=== PATIENT | female | born 1955 | race Caucasian/White ===

== ENCOUNTER 2018-12-30 05:53 | Inpatient (IN) | payer OTHER, SELFPAY ==
[2018-12-13 12:47] VITALS: BMI 45.2
[2018-12-30] VITALS (18 sets, daily range): BP systolic 97–163; BP diastolic 52–90; PULSE 45–86; RESP 9–18; TEMP 36.1–37.7; O2SAT 96–100; BMI 45.2
--- NOTE | 2018-12-30 06:31 | DI.RAD.S_ITS ---
PROCEDURE: XR KNEE RT 1TO2V INDICATIONS: post op TKA TECHNIQUE: 2 view(s) of the knee acquired. COMPARISON: Radiographs of the knee 06/08/2018, 05/27/2016. FINDINGS: Bones: Patient is status post knee joint arthroplasty. Hardware components are in expected positions. Visualized bony structures are intact. Soft tissues: Overlying postoperative changes are noted. Suprapatellar surgical drain in place. Anterior staple line. IMPRESSION: Satisfactory appearance of the right total hemiarthroplasty. Dictated by: Salvador Dumont M.D. on 12/30/2018 at 12:05 Approved by: Salvador Dumont M.D. on 12/30/2018 at 12:07
[2018-12-30] MEDS: PREGABALIN 75 MG CAPSULE PO (07:05)
[2018-12-30] MEDS: VANCOMYCIN 1,000 MG/200 ML PIGGYBACK 200 MG IV ×2 (07:11→16:39)
[2018-12-30] MEDS: CELECOXIB 200 MG CAPSULE PO (07:25)
--- NOTE | 2018-12-30 07:46 | PM.PREOP ---
Pre-operative Note Interval Note History & Physical reviewed/Exam performed by Physician: Yes Changes to H&P: No
--- NOTE | 2018-12-30 07:46 | PM.OP.1 ---
Operative Date/Time/Diagnoses Date of procedure: 12/30/18 Time of procedure: 07:54 Pre-op diagnosis: right knee OA Post-op diagnosis: same Procedure & Clinicians Procedure: Right total knee arthroplasty Same procedure as scheduled: Yes Indications: The patient has had progressively worsening right knee pain with radiographic changes consistent with arthritis. Non-operative management has failed and the patient has requested total knee replacement. The risks, benefits and alternatives to surgery were discussed with the patient prior to proceeding. Risks discussed included, but were not limited to, failure to relieve pain, stiffness, infection, nerve damage, deep venous thrombosis, pulmonary embolism, stroke, coma, heart attack, permanent paralysis and , as well as the potential need for eventual revision of the prosthetic. Surgeon: Cristal Rutledge Director Of Leadership Development: Kaley Martinez Operative Notes Findings: Severe right knee osteoarthritis, adequate stability, Closure Type: primary Prosthetic devices, grafts, tissues, transplants, or devices: Rutledge and Nephew Journey BCS 2 size 8 femur, size 6 tibia, +9 poly, 32 mm patella Applied: drain(s) Estimated Blood Loss (mL): 250 Blood products transfused: none Procedure in detail: The patient was seen in the pre-operative area, where the patient identified the right knee as the operative site and this was marked with my initials. The patient received pre-operative antibiotics, and was taken to the operating room and placed on the operative table in the supine position. After satisfactory anesthesia, a careers counsellor out was performed. The right leg was encircled with a tourniquet about the proximal thigh, and the leg was prepared from the toes to the tourniquet with ChloroPrep in the usual fashion and draped through sterile drapes. The leg was elevated and exsanguinated with Eschmark bandage and the tourniquet inflated to [300] mmHg pressure. The knee was approached through an approximately 18 cm incision centered over the patella and carried into the knee through a medial parapatellar arthrotomy. A portion of the medial and lateral meniscus was resected. Soft tissue was carefully mobilized around the patella the patella was measured with a caliper. Bone was resected from the patella and the patellar height was reconstituted with up an appropriate sized patellar component. A cover was then placed on the patella. A small amount of additional medial and lateral meniscus was resected. The visionare guide fit well to the distal femur. It looked like an appropriate distal femoral cut and the cut was made without difficulty. The rotation was assessed and the appropriate size femoral guide was placed on the distal femur and finishing cuts were made. There was no evidence of notching. The anterior, posterior and chamfer cuts were then made. The posterior osteophytes and soft tissues were then removed. The posterior capsule was injected with part of a mixture of 60 ml 0.25% Marcaine mixed with 20 ml Exparel for post operative pain control. The remainder of this mixture was injected into the capsule and subcutaneous tissues during cement curing. The tibia was prepared and the visionaire guide fit well to the distal tibia. The rotation was assessed. The patient was placed in extension residual medial and lateral meniscus as well as any residual bone was carefully resected. [No] additional tibia was resected. Hemostasis was achieved especially posteriorly. Additional local was injected into the posterior capsule. The extension gap was assessed and additional releases for gap balancing were performed as necessary. It was checked with the gap gum rolling machine tender. The femoral component was trial was placed and the notch was finished. Trial tibial and femoral components were then placed and the knee placed through a range of motion. Range of motion was [0-125], with good stability throughout the range. The trials were then removed, and the tibia was finished. The bone was prepared with pulsatile lavage, and dried with a sponge. Cement was applied and the final prosthetics placed. Excess cement was removed during and after cement curing. A brief Betadine soak was performed. After confirming there was no extruded cement posteriorly, the final tibial insert was placed. The knee was copiously irrigated and the tourniquet deflated. Hemostasis was obtained with the [Bovie]. A drain was placed and brought out superolaterally. The capsule was closed with interrupted Vicryl suture. The subcutaneous layer was closed with barbed sutures, and the skin with a running 3-0 V-Lock suture and skin nils. A Becky dressing was applied and the patient was taken to recovery having tolerated the procedure well. Complications: none Post-operative Condition: stable Disposition: Acute Care Plan for aftercare: The patient will be maintained on a standard total knee replacement protocol with weight bearing as tolerated. The patient will receive aspirin and sequential compression devices for DVT prophylaxis. The patient will be discharged home when safe for the home environment.
[2018-12-30] MEDS: fentaNYL 100 MCG/2 ML INJ 50 MCG IV ×2 (07:47→11:38)
[2018-12-30] MEDS: MIDAZOLAM 2 MG/2 ML VIAL IV (07:47)
[2018-12-30] MEDS: LACTATED RINGERS 1,000 ML 42 ML IV ×2 (08:01→09:41)
--- NOTE | 2018-12-30 08:02 | SUR.PREOP ---
Block start time [0747] . Monitoring initiated and maintained throughout procedure. Oxygen and medications given per anesthesiologist instructions. Patient remained stable throughout procedure, no adverse reactions noted. Block end time [0855].
[2018-12-30] MEDS: CLINDAMYCIN 900 MG/50 ML PIGGYBACK 50 MG IV (08:30)
--- NOTE | 2018-12-30 08:47 | SUR.OPER ---
Supine on padded OR bed. Pillow under head, arms secured on padded armboards <90 degree abduction. Safety belt across torso. Non-operative leg secured with tape over blanket over lower leg. Operative leg secured in DeMayo/Saqib positioner. Foam padded brace at thigh of operative leg.
[2018-12-30] MEDS: BUPIVACAINE LIPOSOME 266 MG/20 ML VIAL INJ (08:56)
[2018-12-30] MEDS: BUPIVACAINE 0.25% W/ EPI 30 ML VIAL 60 ML INJ (08:56)
[2018-12-30] MEDS: TRANEXAMIC ACID 1,000 MG VIAL 1000 MG INJ ×2 (10:51→10:52)
[2018-12-30] MEDS: ONDANSETRON 4 MG/2 ML INJ IV (11:44)
[2018-12-30] MEDS: ACETAMINOPHEN 325 MG TABLET 975 MG PO ×2 (12:12→20:31)
--- NOTE | 2018-12-30 12:44 | SUR.PHASEI ---
gave zofran for emesis x 3. As long as patient is upright patient states she feels ok. Gave pain medication for knee/back pain.
[2018-12-30] MEDS: LACTATED RINGERS 1,000 ML 125 ML IV ×2 (13:19→22:27)
[2018-12-30] MEDS: OXYCODONE IR 5 MG TABLET PO ×2 (13:37→16:37)
--- NOTE | 2018-12-30 14:11 | PC.NURSE ---
Addendum entered by Yvette Kohli R.N. 12/30/18 15:17: message left for TAHIR Roche at 1505 regarding pt's pain management. Fax will be sent to surgery also. Addendum entered by Yvette Kohli R.N. 12/30/18 14:59: Upon reassessment, pain to right knee 5-6/10, pt states Oxycodone made her feel slightly dizzy, did not help with pain. PRN Tramadol given at 1459 per MAR. Original Note: Day Shift- Report taken by RN Coordinator. Another RN to assume care of pt, however this RN assumed care at 1320. Pt had arrived on unit at 1300. Pt feeling intermittent nausea, does not want PRN at this time. Rates 4-5/10 aching to top and back of right knee. PRN Oxycodone given at 1337 with saltine crackers. Pt also has gingerale per her request. PIC dressing CDI to right knee and Hemovac in place clamped. Clamped released at 1350, per PACU report was clamped at 1100. CMS+, bilateral puffy edema to dorsal foot below toes, pt states this is her normal. RLE edema greater than LLE edema, pt states this is her normal as well. Family at bedside. Pt instructed to DB&C and perform ankle pump exercises.
[2018-12-30] MEDS: TRAMADOL 50 MG TABLET PO (14:58)
--- NOTE | 2018-12-30 15:15 | PT.IPTN ---
Current Diagnoses Unilateral primary osteoarthritis, right knee (12/30/18) Surgery Performed Operation Date: 12/30/18 07:45 Actual Procedures p Total Knee Arthroplasty(Right) - Cristal Rutledge MD Physical Therapy Treatment Note M3 PT-IP Subjective Start: 12/30/18 15:11 Freq: NEEDED Status: Active Protocol: Document 12/30/18 14:05 AB (Rec: 12/30/18 15:15 AB [id number]) Subjective Physical Therapy Visit Type Notes checked on pt and pt c/o nausea. BP: 114/72. pt does not want to do PT at this time due to nausea.
[2018-12-30] MEDS: KETOROLAC 15 MG/ML VIAL IV (17:49)
[2018-12-30] MEDS: ASPIRIN EC 81 MG TABLET PO (20:32)
[2018-12-30] MEDS: OXYCODONE IR 5 MG TABLET 10 MG PO (20:32)
[2018-12-30] MEDS: DOCUSATE 100 MG CAPSULE PO (20:32)
[2018-12-31] MEDS: OXYCODONE IR 5 MG TABLET 10 MG PO ×3 (01:59→13:17)
[2018-12-31] MEDS: ONDANSETRON 4 MG/2 ML INJ IV (02:06)
--- NOTE | 2018-12-31 02:26 | PC.NURSE ---
Addendum entered by Lindsey Villarreal R.N. 12/31/18 05:22: Slept last several hours. States pain is 3/10 this morning and agreeable to taking just 5mg Oxycodone at this time. Denies nausea. Had 175cc out from hemovac. Original Note: Patient is alert and oriented. Breath sounds CTA with RA sat of 98%. HRR. Initially denied nausea but after being up to bathroom complained of nausea so was medicated with IV Zofran. BT present and abdomen is soft; reports passing flatus. Denies dysuria, frequency or urgency; voiding on BSC and is continent. Able to move self in bed. Requires walker and 2 assists to get up to BSC but denies feeling weak. States pain in right knee is 4/10; requested/medicated with 10mg Oxycodone as states the earlier 5mg dose was not enough to control the pain. MADHAVI dressing is CDI and knee is wrapped with janneth. Hemovac is intact and compressed. CMS intact bilaterally. Does have non pitting chronic bilateral LE edema. Wearing calf SCD's. Fall risk score is high and bed alarm is activated.
[2018-12-31] MEDS: OXYCODONE IR 5 MG TABLET PO ×2 (05:18→17:18)
[2018-12-31 05:20] VITALS: BP 133/73; PULSE 85; RESP 16; TEMP 36.3; O2SAT 100
[2018-12-31 05:26] LABS: Hemoglobin 11.3 g/dL (12.0-16.0)
[2018-12-31] MEDS: LACTATED RINGERS 1,000 ML 125 ML IV (06:18)
[2018-12-31 08:04] VITALS: BP 111/70
[2018-12-31] MEDS: DOCUSATE 100 MG CAPSULE PO (08:04)
[2018-12-31] MEDS: LISINOPRIL 20 MG TABLET PO (08:04)
[2018-12-31] MEDS: ACETAMINOPHEN 325 MG TABLET 975 MG PO ×2 (08:04→15:51)
[2018-12-31] MEDS: ASPIRIN EC 81 MG TABLET PO (08:05)
[2018-12-31] MEDS: PANTOPRAZOLE 40 MG TABLET PO (08:05)
[2018-12-31] MEDS: CHLORTHALIDONE 25 MG TABLET PO (08:06)
[2018-12-31] MEDS: ALLOPURINOL 300 MG TABLET PO (08:06)
[2018-12-31 08:15] VITALS: BP 111/70; PULSE 64; RESP 17; TEMP 37.4; O2SAT 98
--- NOTE | 2018-12-31 09:29 | PM.PNPO.1 ---
Subjective Subjective Date Patient Seen: 12/31/18 Time Patient Seen: 09:29 Interval history: Postop day 1 status post right total knee arthroplasty with Dr. Rutledge. Patient's pain has been well controlled with oxycodone, and Tylenol. She notes she does get muscle spasms from time to time. ASA for DVT prophylaxis. Last drain output was 175. She just got up with physical therapy. Exam Vital Signs (past 8 hours): - 12/31/18 05:20 12/31/18 08:04 12/31/18 08:15 Temperature 97.3 F L 99.4 F Pulse Rate 85 64 Respiratory Rate 16 17 Blood Pressure 133/73 111/70 111/70 Pulse Oximetry 100 98 Fraction of Inspired Oxygen 21 Oxygen Delivery Method Room Air Oxygen Flow Rate 0 Narrative Exam Narrative: Patient is sitting at bedside chair in no acute distress. She is alert orient x3. Calves are soft, compressible, nontender bilaterally. Sensation intact to light touch over bilateral lower extremities. Pulses are symmetrical. Hemovac drain in place. Objective Labs Result Diagrams: 12/31/18 05:08 Labs: Laboratory Results - last 24 hr 12/31/18 05:08 Hgb 11.3 L Hct 33.0 L Assessment & Plan Post-op Postoperative Procedures: Procedures Operation Date: 12/30/18 07:45 Actual Procedures Side Surgeon p Total Knee Arthroplasty Right Cristal Urmila Rutledge MD Patient will continue to mobilize with physical therapy. She did note some dizziness and was instructed to take her time when transitioning from lying to sitting, sitting to standing, and standing to mobilizing. She is encouraged to drink fluids today. Remove Hemovac drain prior to discharge. She could discharge home today of mobilizing safely, and pain adequately controlled.
--- NOTE | 2018-12-31 09:43 | PC.NURSE ---
Addendum entered by Ynes Dunn R.N. 12/31/18 12:11: Pt. sitting up in chair after working with Rehab. Reports pain 06/30. Repositioned; ice in place. Reports little appetite but tolerates food and denies nausea. Discharge orders written; awaiting caregiver training with PT. Original Note: DAY SHIFT Report received, care assumed. A&Ox3. VSS. C/o right knee pain 09/29; ice applied and meds given. Denies nausea at this time. Pt. requests up to BSC to void. Had difficulty transferring to edge of bed, but once out of bed mobilized appropriately with walker to BSC. Worked with PT, will do caregiver training for discharge this afternoon.
--- NOTE | 2018-12-31 10:43 | CM.IDA ---
Initial DCP Assessment Note: Pt is a 63 yo female, resident of [place], now POD#1 from Rt knee surgery w/ Dr Rutledge PCP: Marc Garza Payer: [employer] Reviewed chart, pt discussed in multidisciplinary rounds this morning. pt has planned for return home w/family to assist, PT pending for clearance, DC order from Ortho PA has already been initiated this morning. No needs expected from DC planning team although will remain available in case this changes today. [place]
--- NOTE | 2018-12-31 10:54 | PT.IIE ---
Current Diagnoses Unilateral primary osteoarthritis, right knee (12/30/18) Surgery Performed Operation Date: 12/30/18 07:45 Actual Procedures p Total Knee Arthroplasty(Right) - Cristal Rutledge MD Surgical History (Last Updated 12/13/18 @ 12:57 by Marisela Benjamin, RN) History of section (Acute) History of laparotomy (Acute) History of left nephrectomy (Acute ~2003) History of surgical removal of pilonidal cyst (Acute) Hx of appendectomy (Acute) Hx of cholecystectomy (Acute ~2003) Medical History (Last Updated 12/13/18 @ 13:21 by Marisela Benjamin, RN) Arthritis (Acute) Asthma (Acute) Edema (Acute) GERD (gastroesophageal reflux disease) (Acute) HTN (hypertension) (Acute) Hyperuricemia (Acute) Migraines (Acute) Morbid obesity (Acute) Osteoarthritis (Acute) Physical Therapy Inpatient Evaluation/Re-Eval M1 PT/OT-IP Prior Functional Status Start: 12/30/18 15:11 Freq: NEEDED Status: Active Protocol: Document 12/31/18 08:30 (Rec: 12/31/18 10:53 [id number]) Medical Review Prior Functional Status Medical History Reviewed Yes Communication able to make needs known Mobility and Gait pt stated that she is independent with all mobilities and ambulation without AD but has been using her SPC for ~ 2 weeks prior to sx due to pain Social History Household Members none Living Arrangements House Number of Floors (Floors) One Floor Number of Stairs To Enter/Railing? 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 pt's daughter (former [employer]IN[employer] PICKLER) stated that she will be staying and assisting the pt for 2 weeks or when needed upon d/c M2 PT-IP Current Condition Start: 12/30/18 15:11 Freq: NEEDED Status: Active Protocol: Document 12/31/18 08:30 [facility] (Rec: 12/31/18 [facility]:[address] [email or web address] Physical Therapy Current Condition Current Condition Evaluation Date 12/31/18 Treatment Diagnosis R TKA, difficulty in walking Onset Date 12/30/18 Weight Bearing Status Weight Bearing Status Weight Bear as Tolerated M3 PT-IP Subjective Start: 12/30/18 15:11 Freq: NEEDED Status: Active Protocol: Document 12/31/18 08:30 HH (Rec: 12/31/18 10:53 [id number]) Subjective Physical Therapy Visit Type Type Initial Evaluation Visit Start Time 08:30 Visit Stop Time 09:15 Total Visit Minutes 45 Number of LEGAL ANALYST Visits 0 Physical Therapy Visit Comments Patient Comments Gina been feeling nauseated and lightheaded easily since surgery, but im now feeling better. Patient Goals To return home with dtr's assistance Therapy Pain Assessment Pain When Pain Assessed During Mobility Pain Present Pain Present Pain Reported Location Right Knee Intensity 5 Scale Used Numeric (1 - 10) Description Acute Pain Management Techniques Apply Cold,Modification of Treatment,Timing of Activity with Medications M4 PT-IP Mobility and Gait Start: 12/30/18 15:11 Freq: NEEDED Status: Active Protocol: Document 12/31/18 08:30 HH (Rec: 12/31/18 10:53 [id number]) PT-Bed Mobility Assessment Supine to Sit Supine to Sit Minimal Assistance,1 Person Assistance,Head of Bed Elevated,Bedrails Scooting Scooting to Edge of Bed Minimal Assistance Scooting Up and Down in Bed Minimal Assistance PT-Transfer Assessment Sit to and From Stand Sit to and from Stand Minimal Assistance,Moderate Assistance,1 Person Assistance ,Use of Upper Extremities Equipment Transfer Assistive Device Front Wheeled Walker Orthotic/Prosthetic Devices or Brace: No Transfers Transfer Destination Bed,Chair Transfer Technique Stand Step Pivot Transfer Ability Level of Assist Minimal Assistance,1 Person Assistance,Use of Upper Extremities Comments Mobility Comments BP = 120s/70s in supine; 100s/ 60s after mobility. Pt was in bed upon assessment. She completed supine to sit and pivot her R LE towards R EOB with CGA/ min A from elevated head of bed 70 degrees. She uses R bed rail to pull and scooting towards EOB. Pt overall took increased time for bed mobiltiy due to her large body size. She stood up with min A and FWW but needed PT's assistance to stabilize walker. Pt then started ambulation from EOB to hallway with step to gait. She returned to bedside chair after but demonstrated poor eccentric control with min A. Call light and table placed within reach. Gait Assessment Gait Gait Assistance Required: Contact Guard Assist Distance (Feet) 30 Able to Maintain Weight Bearing Status Yes During Gait Assistive Devices Assistive Device Gait Belt,Front Wheeled Walker Orthotic/Prosthetic Devices or Brace: No Gait Deviations General Gait Pattern Antalgic,Decreased Stride Length,Decreased Feet Clearance,Flexed Trunk,Lateral Trunk Lean,Step-to Gait Factors Limiting Gait Function Factors Limiting Gait Function Decreased Activity Tolerance, Decreased Strength,Limited Range of Motion,Pain,Poor Balance,Poor Safety Awareness Comments Gait Comments see mobility comments Stair Climbing Assessment Comments Stair Climbing Comments unable to assess due to pain PT-Balance Assessment Sitting Balance and Reactions Static Sitting Balance Ability Normal Dynamic Sitting Balance Ability Normal Standing Balance and Reactions Static Standing Balance Ability Normal Dynamic Standing Balance Ability Good Device Used FWW M5 PT-IP Objective Assessments Start: 12/30/18 15:11 Freq: NEEDED Status: Active Protocol: Document 12/31/18 08:30 (Rec: 12/31/18 10:53 [email or web address]) Orientation Orientation/Cognition Level of Alertness Alert Orientation Name,Age,Birthday,Month,Date, Year,Day of Week,Place, Situation Language Function Ability No Deficits Noted Safety Awareness Understands Safety Issues Memory Description No Deficits Noted Gross Range of Motion Upper Extremity ROM Assessment Within Functional Limits Lower Extremity ROM Assessment Right Impaired Impairments L knee AROM = ~5 to 80 degrees Strength Upper Extremity Strength Assessment Within Functional Limits Lower Extremity Strength Assessment Right Impaired Knee 3+/5 M6 PT-IP Treatment Start: 12/30/18 15:11 Freq: NEEDED Status: Active Protocol: Document 12/31/18 08:30 HH (Rec: 12/31/18 10:53 [id number]) Physical Therapy Treatment Exercises Exercises Ankle Pumps,Gluteal Sets,Quad Sets,Heel Slides Education Education Provided Precautions,Weight Bearing Status,Post-Op Packet,Safety M7 PT-IP Assessment and Plan Start: 12/30/18 15:11 Freq: NEEDED Status: Active Protocol: Document 12/31/18 08:30 HH (Rec: 12/31/18 10:53 [id number]) PT Summary Assessment and Plan Potential Rehabilitation Potential Excellent Status of Condition at Evaluation Stable Summary Impairments Pain,ROM,Strength,Balance,Bed Mobility,Transfers,Gait, Activity Tolerance Assessment Summary Pt is a low complexity who is s/p R TKA from yesterday. Upon assessment, pt needed CGA to min A for overall mobility. She used bed rail extensively for bed mobility and seemed to have difficulty getting up from a low surface chair. Pt's BP was also dropped to 106/62 post mobility who c/o increased dizziness but able to stabilized after resting in her bedside chair. Will conduct CG training with her dtr (former [employer] P[employer]) this afternoon and pt has to climb 3 RIANA with R rail, along with stabilized BP prior to d/c home with dtr's assistance. Goals Bed Mobility Goal Contact Guard Assistance, Moderate Assistance Transfer Goal Contact Guard Assistance Gait Goal Contact Guard Assistance Gait Distance 50 Other Goals 3 RIANA with R rail Days to Meet Goals 3 Frequency of Treatment Frequency Of Treatment Twice a Day Treatment Plan Physical Therapy Treatment Plan Bed Mobility Training,Transfer Training,Gait Training, Therapeutic Exercise,Balance Retraining,Post Op Education, Discharge Planning,Hot or Cold Pack,Neuromuscular Re-ed Other Recommendations and Next Treatment bed mob from flattened Focus position without bed rail transfer and gait traininga s yue stair climbing if possible. Recommendations To Nursing Amount of Assist Needed 1 Person Assist Discharge Recommendations PT Discharge Recommendations Home with Assistance, Outpatient PT
[2018-12-31 12:42] VITALS: BP 109/60; PULSE 72; RESP 15; TEMP 36.9; O2SAT 99
--- NOTE | 2018-12-31 13:35 | PT.IPTN ---
Current Diagnoses Unilateral primary osteoarthritis, right knee (12/30/18) Surgery Performed Operation Date: 12/30/18 07:45 Actual Procedures p Total Knee Arthroplasty(Right) - Cristal Rutledge MD Physical Therapy Treatment Note M2 PT-IP Current Condition Start: 12/30/18 15:11 Freq: NEEDED Status: Active Protocol: Document 12/31/18 08:30 HH (Rec: 12/31/18 10:53 HH [id number]) Physical Therapy Current Condition Current Condition Evaluation Date 12/31/18 Treatment Diagnosis R TKA, difficulty in walking Onset Date 12/30/18 Weight Bearing Status Weight Bearing Status Weight Bear as Tolerated M3 PT-IP Subjective Start: 12/30/18 15:11 Freq: NEEDED Status: Active Protocol: Document 12/31/18 13:35 AB (Rec: 12/31/18 15:53 AB [id number]) Subjective Physical Therapy Visit Type Type Treatment Note Visit Start Time 13:35 Visit Stop Time 14:29 Total Visit Minutes 54 Number of DIRECTOR MEDICAL Visits 0 Physical Therapy Visit Comments Patient Comments pt agreeable to do PT Therapy Pain Assessment Pain When Pain Assessed At Rest Pain Present Pain Present Pain Reported Location Right Knee Intensity 5 Scale Used Numeric (1 - 10) M4 PT-IP Mobility and Gait Start: 12/30/18 15:11 Freq: NEEDED Status: Active Protocol: Document 12/31/18 13:35 AB (Rec: 12/31/18 15:53 AB [id number]) PT-Bed Mobility Assessment Supine to Sit Supine to Sit Standby Assistance Sit to Supine Sit to Supine Minimal Assistance PT-Transfer Assessment Sit to and From Stand Sit to and from Stand Contact Guard Assistance, Minimal Assistance,1 Person Assistance,Use of Upper Extremities Equipment Transfer Assistive Device Gait Belt,Front Wheeled Walker Orthotic/Prosthetic Devices or Brace: No Comments Mobility Comments caregiver training conducted. daughter was able to assist pt with bed mobility, transfers and ambulation. Gait Assessment Gait Gait Assistance Required: Standby Assistance,Contact Guard Assist Distance (Feet) 75 Able to Maintain Weight Bearing Status Yes During Gait Assistive Devices Assistive Device Gait Belt,Front Wheeled Walker Orthotic/Prosthetic Devices or Brace: No Gait Deviations General Gait Pattern Antalgic,Decreased Stride Length,Decreased Feet Clearance Factors Limiting Gait Function Factors Limiting Gait Function Decreased Activity Tolerance, Decreased Strength,Limited Range of Motion,Pain,Poor Balance Stair Climbing Assessment Evaluation Level of Assist On Stairs Minimal Assistance,1 Person Assistance Devices Stair Climbing Assistive Devices Straight Cane,Right Railing Technique/Endurance Stair Climbing Direction Ascend and Descend Stair Climbing Technique Step to Step Number of Steps Climbed 3 Stair Climbing Set # Repetitions (reps) 1 M5 PT-IP Objective Assessments Start: 12/30/18 15:11 Freq: NEEDED Status: Active Protocol: Document 12/31/18 08:30 HH (Rec: 12/31/18 10:53 HH [id number]) Orientation Orientation/Cognition Level of Alertness Alert Orientation Name,Age,Birthday,Month,Date, Year,Day of Week,Place, Situation Language Function Ability No Deficits Noted Safety Awareness Understands Safety Issues Memory Description No Deficits Noted Gross Range of Motion Upper Extremity ROM Assessment Within Functional Limits Lower Extremity ROM Assessment Right Impaired Impairments L knee AROM = ~5 to 80 degrees Strength Upper Extremity Strength Assessment Within Functional Limits Lower Extremity Strength Assessment Right Impaired Knee 3+/5 M6 PT-IP Treatment Start: 12/30/18 15:11 Freq: NEEDED Status: Active Protocol: Document 12/31/18 13:35 AB (Rec: 12/31/18 15:53 AB [id number]) Physical Therapy Treatment Exercises Exercises Heel Slides Education Education Provided Safety M7 PT-IP Assessment and Plan Start: 12/30/18 15:11 Freq: NEEDED Status: Active Protocol: Document 12/31/18 13:35 AB (Rec: 12/31/18 15:53 AB [id number]) PT Summary Assessment and Plan Potential Rehabilitation Potential Good Summary Impairments Pain,ROM,Strength,Balance,Bed Mobility,Transfers,Gait, Activity Tolerance Progress Towards Goals Progressing Toward Goals Assessment Summary caregiver trianing conducted and pt's daughter was able to assist pt safely. pt plans to go home and her family to assist her. pt is set up for outpt PT. Goals Bed Mobility Goal Contact Guard Assistance Transfer Goal Contact Guard Assistance Gait Goal Contact Guard Assistance Gait Distance 50 Other Goals 3 RIANA with R rail CGA Days to Meet Goals 3 Frequency of Treatment Frequency Of Treatment Twice a Day Treatment Plan Physical Therapy Treatment Plan Bed Mobility Training,Transfer Training,Gait Training, Therapeutic Exercise,Balance Retraining,Post Op Education, Discharge Planning,Hot or Cold Pack,Neuromuscular Re-ed Recommendations To Nursing Amount of Assist Needed 1 Person Assist Discharge Recommendations PT Discharge Recommendations Home with Assistance, Outpatient PT
[2018-12-31 15:35] VITALS: BP 112/71; PULSE 80; RESP 16; TEMP 37.3; O2SAT 100
--- NOTE | 2018-12-31 18:49 | PC.NURSE ---
Addendum entered by Regla Tidwell R.N. 12/31/18 18:54: H/V gauze and tegaderm changed prior to leaving as it has moderate drainage. Gauze & tegaderm provided to pt's dtr with drsg instructions if site continues to have drainage. Original Note: Assumed care of pt at 1500. Pt sitting up in chair during hand-off. D/C paperwork completed by day shift RN. Teaching provided by this commercial underwriter. Drain removed per Verbal by TAHIR Rojas. Pressure drsg applied. IV removed. Dr. Rutledge in for rounding prior to d/c and wrote script for Tramadol. Pt verbalized understanding of all d/c instructions. Pt escorted off unit by MANNEQUIN MOUNTER with all personal belongings. Pt left in stable condition.
== END 2018-12-31 17:50 | disposition home or self-care (01) | DRG 470 ==
PROVIDERS: Admitting Provider Orthopaedic Surgery; PCP Family Medicine; Visit Provider Orthopaedic Surgery
PROC: 0SRC0JZ Replacement of Right Knee Joint with Synthetic Substitute, Open Approach (ICD-10-PCS; CPT 27447; principal; 2018-12-30 07:45)
DX: M17.11 Unilateral primary osteoarthritis, right knee (principal); Z68.42 Body mass index [BMI] 45.0-49.9, adult; E66.9 Obesity, unspecified; I10 Essential (primary) hypertension; M10.9 Gout, unspecified; R42 Dizziness and giddiness
CPT/HCPCS: 36415; 64447; 73560; 85014; 85018; 94762; 97116; 97161; 97530; C1776; C9290; J1885; J2250; J2405; J2704; J3010

== ENCOUNTER → 2021-12-03 11:16 | Outpatient (CLI) | payer OTHER, SELFPAY ==
[2018-12-30 13:34] VITALS: BMI 45.2
[2021-12-03 12:11] LABS: COVID19 -Nasal RAPID Negative (Negative)
== END ==
PROVIDERS: PCP Family Medicine; Referring Provider Orthopaedic Surgery; Visit Provider Orthopaedic Surgery
DX: Z20.822 Contact with and (suspected) exposure to COVID-19 (principal)
CPT/HCPCS: 87635; C9803

== ENCOUNTER 2021-12-05 06:07 | Day surgery (SDC) | payer OTHER, SELFPAY ==
[2018-12-30 13:34] VITALS: BMI 45.2
[2021-11-28 13:52] VITALS: BMI 45.8
[2021-12-05] VITALS (21 sets, daily range): BP systolic 91–159; BP diastolic 43–81; PULSE 49–600; RESP 8–18; TEMP 36–36.7; O2SAT 69–100; BMI 45.8
--- NOTE | 2021-12-05 06:34 | DI.RAD.S_ITS ---
PROCEDURE: XR KNEE LT 1TO2V INDICATIONS: LEFT TOTAL KNEE TECHNIQUE: 2 view(s) of the knee acquired. COMPARISON: [facility], CR, XR KNEE RT 1TO2V, 12/30/2018, 11:42. FINDINGS: Bones: Patient is status post knee joint arthroplasty. Hardware components are in expected positions. Visualized bony structures are intact. Soft tissues: Overlying postoperative changes are noted. IMPRESSION: Expected immediate postoperative appearance, status post total left knee arthroplasty. Dictated by: Santiago Elise M.D. on 12/05/2021 at 12:43 Approved by: Santiago Elise M.D. on 12/05/2021 at 12:44
[2021-12-05] MEDS: VANCOMYCIN 1,000 MG/200 ML PIGGYBACK 200 MG IV ×2 (06:46→19:05)
[2021-12-05] MEDS: PREGABALIN 75 MG CAPSULE PO (06:47)
[2021-12-05] MEDS: ACETAMINOPHEN 325 MG TABLET 975 MG PO (06:49)
[2021-12-05] MEDS: LACTATED RINGERS 1,000 ML 42 ML IV ×3 (07:00→12:11)
--- NOTE | 2021-12-05 07:38 | PM.PREOP ---
Pre-operative Note COVID-19 COVID-19 status: Negative Interval Note History & Physical reviewed/Exam performed by Physician: Yes Changes to H&P: No
--- NOTE | 2021-12-05 07:39 | PM.OP.1 ---
Operative Date/Time/Diagnoses Date of procedure: 12/05/21 Time of procedure: 07:45 Pre-op diagnosis: left knee OA Post-op diagnosis: same Procedure & Clinicians Procedure: Left total knee arthroplasty Same procedure as scheduled: Yes Indications: The patient has had progressively worsening left knee pain with radiographic changes consistent with arthritis. Non-operative management has failed and the patient has requested total knee replacement. The risks, benefits and alternatives to surgery were discussed with the patient prior to proceeding. Risks discussed included, but were not limited to, failure to relieve pain, stiffness, infection, nerve damage, deep venous thrombosis, pulmonary embolism, stroke, coma, heart attack, permanent paralysis and , as well as the potential need for eventual revision of the prosthetic. Surgeon: Cristal Rutledge Executive Office Manager: Sudha Toro Anesthesia Type: General Operative Notes Findings: Severe left knee osteoarthritis, acceptable stability Closure Type: primary Specimen(s): none sent Prosthetic devices, grafts, tissues, transplants, or devices: Rutledge [employer]hew [employer] BCS 2 size 7 femur, size 6 tibia, 32 by 7.5 mm patella, +9 poly Applied: drain(s) Estimated Blood Loss (mL): 250 Blood products transfused: none Tourniquet time (min): 79 Procedure in detail: The patient was seen in the pre-operative area, where the patient identified the left knee as the operative site and this was marked with my initials. The patient received pre-operative antibiotics, and was taken to the operating room and placed on the operative table in the supine position. After satisfactory anesthesia, a signal timer out was performed. The left leg was encircled with a tourniquet about the proximal thigh, and the leg was prepared from the toes to the tourniquet with ChloroPrep in the usual fashion and draped through sterile drapes. The leg was elevated and exsanguinated with Eschmark bandage and the tourniquet inflated to [250] mmHg pressure. The knee was approached through an approximately 18 cm incision centered over the patella and carried into the knee through a medial parapatellar arthrotomy. A portion of the medial and lateral meniscus was resected. Soft tissue was carefully mobilized around the patella the patella was measured with a caliper. Bone was resected from the patella and the patellar height was reconstituted with up an appropriate sized patellar component. A cover was then placed on the patella. A small amount of additional medial and lateral meniscus was resected. The distal femur was cut at 5?. A [+2] cut was used. It looked like an appropriate distal femoral cut and the cut was made without difficulty. An extramedullary guide was used for the tibial cut. 10 mm was resected off the least affected side.The tibia was prepared. The rotation was assessed. The patient was placed in extension residual medial and lateral meniscus as well as any residual bone was carefully resected. [No] additional tibia was resected. Hemostasis was achieved especially posteriorly. Additional local was injected into the posterior capsule. The extension gap was assessed and additional releases for gap balancing were performed as necessary. It was checked with the gap business applications analyst. The femoral component was trial was placed and the notch was finished. The rotation was assessed and the appropriate size femoral guide was placed on the distal femur and finishing cuts were made. There was no evidence of notching. The anterior, posterior and chamfer cuts were then made. The posterior osteophytes and soft tissues were then removed. The posterior capsule was injected with part of a mixture of 60 ml 0.25% Marcaine mixed with 20 ml Exparel for post operative pain control. The remainder of this mixture was injected into the capsule and subcutaneous tissues during cement curing. The tibial and femoral components were then placed and the knee placed through a range of motion. Range of motion was [0-130], with good stability throughout the range. The trials were then removed, and the tibia was finished. The bone was prepared with pulsatile lavage, and dried with a sponge. Cement was applied and the final prosthetics placed. Excess cement was removed during and after cement curing. A brief Betadine soak was performed. After confirming there was no extruded cement posteriorly, the final tibial insert was placed. The knee was copiously irrigated and the tourniquet deflated. Hemostasis was obtained with the [bovie]. A drain was placed and brought out superolaterally. The capsule was closed with interrupted nonabsorbable suture. The subcutaneous layer was closed with barbed sutures, and the skin with a running 3-0 V-Lock suture and Surgical glue. An Aquacel Ag dressing was applied and the patient was taken to recovery having tolerated the procedure well. Complications: none Post-operative Condition: stable Disposition: observation Plan for aftercare: The patient will be maintained on a standard total knee replacement protocol with weight bearing as tolerated. The patient will receive aspirin and sequential compression devices for DVT prophylaxis. The patient will be discharged home when safe for the home environment.
[2021-12-05] MEDS: TRANEXAMIC ACID 1,000 MG VIAL 1000 MG INJ ×2 (08:35→10:07)
--- NOTE | 2021-12-05 08:56 | SUR.OPER ---
Supine on padded OR bed. Pillow under head, arms secured on padded armboards <90 degree abduction. Safety belt across torso. Non-operative leg secured with tape over blanket over lower leg. Operative leg secured in DeMayo/Saqib/Nathe positioner. Foam padded brace at thigh of operative leg.
[2021-12-05] MEDS: BUPIVACAINE 0.25% (PF) 60 ML, EPINEPHrine 0.3 MG INJ (09:05)
[2021-12-05] MEDS: BUPIVACAINE LIPOSOME 266 MG/20 ML VIAL INJ (09:05)
[2021-12-05] MEDS: HYDROMORPHONE 2 MG INJ 0.5 MG IV ×2 (11:13→11:23)
[2021-12-05] MEDS: ONDANSETRON 4 MG/2 ML INJ IV ×2 (11:39→12:01)
[2021-12-05] MEDS: METOCLOPRAMIDE 10 MG/2 ML INJ IV (12:28)
--- NOTE | 2021-12-05 12:29 | SUR.PHASEI ---
Dr. Espinal notified HR ranging from 40s-70. Patient continued to report nausea. VVO Reglan 10mg IV x1.
[2021-12-05] MEDS: OXYCODONE IR 5 MG TABLET PO (12:42)
--- NOTE | 2021-12-05 12:44 | SUR.PHASEI ---
Report called to KAYLA Cuevas
--- NOTE | 2021-12-05 13:02 | SUR.PHASEI ---
Patient transferred to the floor with her belongings bag. Report given to Mason. VS stable. Knee dressing CDI. HV patent. MADHAVI in place. IV saline locked.
[2021-12-05] MEDS: LACTATED RINGERS 1,000 ML 100 ML IV (13:31)
--- NOTE | 2021-12-05 14:10 | PT.IIE ---
Current Diagnoses Unilateral primary osteoarthritis, left knee (12/05/21) Surgery Performed Operation Date: 12/05/21 07:45 Actual Procedures p Total Knee Arthroplasty(Left) - Cristal Rutledge MD Surgical History (Last Updated 11/28/21 @ 14:00 by Marisela Benjamin, RN) History of arthroplasty of right knee (12/30/18) History of section History of laparotomy History of left nephrectomy (~2003) History of surgical removal of pilonidal cyst Hx of appendectomy Hx of cholecystectomy (~2003) Medical History (Last Updated 12/13/18 @ 13:21 by Marisela Benjamin, KAYLA) Arthritis Asthma Edema GERD (gastroesophageal reflux disease) HTN (hypertension) Hyperuricemia Migraines Morbid obesity Osteoarthritis Physical Therapy Inpatient Evaluation/Re-Eval M1 PT/OT-IP Prior Functional Status Start: 12/05/21 14:55 Freq: NEEDED Status: Active Protocol: Document 12/05/21 14:10 AB (Rec: 12/05/21 15:09 [id number]) Medical Review Prior Functional Status Medical History Reviewed Yes Communication able to make needs known Mobility and Gait per daughter: pt is modified independent with all mobilities and ambulation without AD but uses either a quad cane or 2 trekking poles for long distance outdoor mobility Social History Household Members family Living Arrangements House Number of Floors (Floors) One Floor Number of Stairs To Enter/Railing? 3 steps R rail to enter Home Environment Tub/Shower Home Equipment Front Wheel Walker,Quad Cane, Straight Cane,Bedside Commode, Raised Toilet Seat Without Armrests,Tub Transfer Bench, Hand Held Shower,Grab Bars Near Toilet,Grab Bars In Shower Additional Social History Comment pt lives with her grandson; daughter will stay with pt for ~ 1 weeks to assist pt and afterwards, grandson will mainly assist and daughter who lives closeby will also come in to assist M2 PT-IP Current Condition Start: 12/05/21 14:55 Freq: NEEDED Status: Active Protocol: Document 12/05/21 14:10 AB (Rec: 12/05/21 15:09 AB [id number]) Physical Therapy Current Condition Current Condition Evaluation Date 12/05/21 Treatment Diagnosis s/p L TKA; difficulty in walking Onset Date 12/05/21 M3 PT-IP Subjective Start: 12/05/21 14:55 Freq: NEEDED Status: Active Protocol: Document 12/05/21 14:10 AB (Rec: 12/05/21 15:09 [id number]) Subjective Physical Therapy Visit Type Type Initial Evaluation Visit Start Time 14:10 Visit Stop Time 14:50 Total Visit Minutes 40 Number of SEROLOGY TECHNICIAN Visits 0 Physical Therapy Visit Comments Patient Comments agreeable to do PT Therapy Pain Assessment Pain When Pain Assessed At Rest Pain Present Pain Present Pain Reported Location Left Knee Intensity 6 Scale Used Numeric (0 - 10) Pain Management Techniques Apply Cold,Distraction, Elevation,Modification of Treatment,Re-positioning, Timing of Activity with Medications M4 PT-IP Mobility and Gait Start: 12/05/21 14:55 Freq: NEEDED Status: Active Protocol: Document 12/05/21 14:10 AB (Rec: 12/05/21 15:09 [id number]) PT-Bed Mobility Assessment Supine to Sit Supine to Sit Minimal Assistance,Head of Bed Elevated,Bedrails Sit to Supine Sit to Supine Maximum Assistance,2 Person Assistance,Bedrails PT-Transfer Assessment Sit to and From Stand Sit to and from Stand Moderate Assistance,Maximum Assistance,1 Person Assistance ,Use of Upper Extremities Equipment Transfer Assistive Device Gait Belt,Front Wheeled Walker Orthotic/Prosthetic Devices or Brace: No Comments Mobility Comments BP in supine: 122/76. completed supine to sit min A and cues. able to sit on EOB SBA. c/o dizziness. BP in sittin/69. pt completed sit to stand mod to max A and max cues and was able to take one step forward using FWW mod to max A and c/o lightheadedness. instructed to step back to EOB and sidestepping to HOB using FWW mod to max A and cues ~ 2 ft. BP checked: 100/59. c/o nausea. completed sit to supine max A x 2 and max cues. positioned pt in bed. call light and table placed within reach. caregiver training set up tomorrow at 9 am. Gait Assessment Gait Gait Assistance Required: Moderate Assistance,Maximum Assistance Distance (Feet) 2 Able to Maintain Weight Bearing Status Yes During Gait Assistive Devices Assistive Device Gait Belt,Front Wheeled Walker Orthotic/Prosthetic Devices or Brace: No Gait Deviations General Gait Pattern Antalgic,Decreased Stride Length,Decreased Feet Clearance,Step-to Gait Factors Limiting Gait Function Factors Limiting Gait Function Decreased Activity Tolerance, Decreased Strength,Difficulty Following Directions,Limited Range of Motion,Pain,Poor Balance,Poor Safety Awareness PT-Balance Assessment Sitting Balance and Reactions Static Sitting Balance Ability Good Dynamic Sitting Balance Ability Good Standing Balance and Reactions Static Standing Balance Ability Fair Dynamic Standing Balance Ability Poor Device Used FWW M5 PT-IP Objective Assessments Start: 12/05/21 14:55 Freq: NEEDED Status: Active Protocol: Document 12/05/21 14:10 AB (Rec: 12/05/21 15:09 AB [id number]) Orientation Orientation/Cognition Level of Alertness Alert Orientation Name,Place,Situation Safety Awareness Decreased Safety Awareness Gross Range of Motion Lower Extremity ROM Assessment Left Impaired Impairments L knee flexion: ~ 60 deg Strength Lower Extremity Strength Assessment Left Impaired Hip 4-/5 Knee 3+/5 Muscle Tone Muscle Tone WNL Yes M6 PT-IP Treatment Start: 12/05/21 14:55 Freq: NEEDED Status: Active Protocol: Document 12/05/21 14:10 AB (Rec: 12/05/21 15:09 AB [id number]) Physical Therapy Treatment Education Education Provided Precautions,Weight Bearing Status,Post-Op Packet,Safety M7 PT-IP Assessment and Plan Start: 12/05/21 14:55 Freq: NEEDED Status: Active Protocol: Document 12/05/21 14:10 AB (Rec: 12/05/21 15:09 AB [id number]) PT Summary Assessment and Plan Potential Rehabilitation Potential Fair Status of Condition at Evaluation Evolving Summary Impairments Pain,ROM,Strength,Balance, Coordination,Sensation,Tone, Cognition,Bed Mobility, Transfers,Gait,Activity Tolerance Assessment Summary pt s/p L TKA and just had surgery this morning. pt with c/o increase pain and nausea during mobiltiy affecting function. pt will likely progress during hospital stay. caregiver training set up for tomorrow at 9 am. will continue to assess progress. Goals Bed Mobility Goal Independent Transfer Goal Independent,Front Wheeled Walker Gait Goal Independent,Front Wheel Walker Gait Distance 150 Other Goals up/down 3 steps R rail SBA Days to Meet Goals 5 Frequency of Treatment Frequency Of Treatment Twice a Day Treatment Plan Physical Therapy Treatment Plan Bed Mobility Training,Transfer Training,Gait Training, Therapeutic Exercise,Balance Retraining,Post Op Education, Discharge Planning,Hot or Cold Pack,Neuromuscular Re-ed, Coordination Retraining,Manual Therapy Weight Bearing Status Weight Bearing Status Weight Bear as Tolerated Allowed Weight Bearing Amount (enter % LLE WBAT or #) (%) Recommendations To Nursing Amount of Assist Needed 1 Person Assist Discharge Recommendations PT Discharge Recommendations Home with Assistance, Outpatient PT Transportation Needs at Discharge Private Vehicle
[2021-12-05] MEDS: OXYCODONE IR 10 MG TABLET PO ×2 (15:32→20:13)
--- NOTE | 2021-12-05 18:23 | PC.NURSE ---
Pt A/O, Denies discomfort at this time. MADHAVI dsg CDI Hemavac intact/patent. IVF infusing as per orders w/o incidence. Call light w/in reach, bed alarm on for pt safety. Continue w/plan of care.
[2021-12-05] MEDS: DOCUSATE 100 MG CAPSULE PO (20:11)
[2021-12-05] MEDS: ASPIRIN EC 81 MG TABLET PO (20:11)
[2021-12-05] MEDS: MAGNESIUM OXIDE 400 MG TABLET 1000 MG PO (20:12)
[2021-12-05] MEDS: IBUPROFEN 400 MG TABLET PO (20:13)
[2021-12-05] MEDS: ACETAMINOPHEN 325 MG TABLET 650 MG PO (23:47)
[2021-12-06 00:14] VITALS: BP 141/71; PULSE 66; RESP 17; TEMP 36.6; O2SAT 98
[2021-12-06] MEDS: OXYCODONE IR 10 MG TABLET PO ×3 (00:48→12:17)
[2021-12-06] MEDS: SODIUM CHLORIDE 0.9% FLUSH 10 ML IV ×2 (01:20→08:19)
--- NOTE | 2021-12-06 03:12 | PC.NURSE ---
Pt. requested to turn off her SCD's. States I can't go to sleep when the machine if pumping & squeezing my legs. Patient was sleeping since SCD's was turned off. Will cont. POC & monitor.
[2021-12-06 04:14] LABS: Hemoglobin 10.8 g/dL (12.0-16.0)
[2021-12-06 04:51] VITALS: BP 137/70; PULSE 88; RESP 16; TEMP 36.3; O2SAT 94
[2021-12-06] MEDS: ACETAMINOPHEN 325 MG TABLET 650 MG PO ×2 (06:07→12:17)
[2021-12-06] MEDS: PANTOPRAZOLE DR 40 MG TABLET PO (06:08)
--- NOTE | 2021-12-06 08:05 | P.DS_ITS ---
History of Present Illness History of Present Illness Date Patient Seen: 12/06/21 Time Patient Seen: 08:05 Chief complaint: Left knee pain s/p left TKA Narrative: Patient is complaining of [id number] left knee pain this morning. She worked with physical therapy yesterday. Overall she is feeling well and would like to be discharged home today. Her postop nausea is resolving. The main concern is that her Hemovac has put out over 310 cc in last 24 hours. Discharge Providers Provider Discharge Date: 12/06/21 Primary care physician: Marc Garza MD Consults: 12/05/21 06:34 Consult to Anesthesiology Routine Comment: Consulting Provider: Anesthesiologist Reason for consultation: Regional block for post operative pain control 12/05/21 13:00 Consult to Discharge Planning Routine Comment: Consult to Physical Therapy Evaluate & Treat Comment: Physician Instructions: postop TKA protocol Consult to Respiratory Therapy Evaluate & Treat Comment: Physician Instructions: Evaluate and treat Discharge provider: Sduha Toro PA-C Summary Hospital Course Discharge Diagnosis: Left knee OA Hospital Course: Operative Date/Time/Diagnoses Date of procedure: 12/05/21 Time of procedure: 07:45 Procedure & Clinicians Procedure: Left total knee arthroplasty Same procedure as scheduled: Yes Indications: The patient has had progressively worsening left knee pain with radiographic changes consistent with arthritis. Non-operative management has failed and the patient has requested total knee replacement. The risks, benefits and alternatives to surgery were discussed with the patient prior to proceeding. Risks discussed included, but were not limited to, failure to relieve pain, stiffness, infection, nerve damage, deep venous thrombosis, pulmonary embolism, stroke, coma, heart attack, permanent paralysis and , as well as the potential need for eventual revision of the prosthetic. Surgeon: Cristal Rutledge Television Journalist: Sudha Toro Anesthesia Type: General Operative Notes Findings: Severe left knee osteoarthritis, acceptable stability Closure Type: primary Specimen(s): none sent Prosthetic devices, grafts, tissues, transplants, or devices: [employer] BCS 2 size 7 femur, size 6 tibia, 32 by 7.5 mm patella, +9 poly Applied: drain(s) Estimated Blood Loss (mL): 250 Blood products transfused: none Tourniquet time (min): 79 Status at Discharge Cognitive/behavioral status at discharge: at baseline, oriented Functional status at discharge: uses cane/walker Overall status at discharge: patient is progressing back to baseline Exam Vital Signs (past 8 hours): - 12/06/21 00:14 12/06/21 04:51 Temperature 97.8 F 97.4 F L Pulse Rate 66 88 Respiratory Rate 17 16 Blood Pressure 141/71 H 137/70 Pulse Oximetry 98 94 Oxygen Flow Rate 0 0 Oxygen Delivery Method Room Air Oxygen Flow Rate 0 Narrative Exam Narrative: Pleasant 66-year-old female, resting comfortably in bed, no acute distress. Becky dressing shows a few pinpoint areas of scant bloody drainage, otherwise clean dry intact. There is no surrounding erythema or induration. Her Hemovac has put out over 310 cc in last 24 hours. It was taken off suction this morning and placed to gravity only. Bilateral lower extremity: Motor functions are grossly intact, sensation is grossly intact to light touch, calves are soft and nontender to palpation. Objective Labs Result Diagrams: 12/06/21 03:40 Labs: Laboratory Results - last 24 hr 12/06/21 03:40 Hgb 10.8 L Hct 32.0 L PFSH Medical History Arthritis Asthma Edema GERD (gastroesophageal reflux disease) HTN (hypertension) Hyperuricemia Migraines Morbid obesity Osteoarthritis Surgical History History of arthroplasty of right knee (12/30/18) History of section History of laparotomy History of left nephrectomy (~2003) History of surgical removal of pilonidal cyst Hx of appendectomy Hx of cholecystectomy (~2003) Social History household members: family Smoking Status: Never smoker alcohol intake: current Discharge Assessment & Plan Assessment and Plan Assessment: Stable status post left total knee arthroplasty Plan of Treatment: -mobilize with PT. Weightbearing as tolerated with front wheel walker -continue with multimodal pain management. The patient has prescriptions at home already. -aspirin 81 mg twice daily x6 weeks -Hemovac taken off suction today. [place] only until after her physical therapy session. If the output is less than 50 cc at this time, okay to discontinue Hemovac. -DC home today once cleared by PT and Hemovac parameters are met. Discharge Plan Discharge Plan Patient Disposition: Home Discharge orders & Medications Discharge Orders: Discharge (Order); Ordered 12/06/21 Ordered By: Sudha Toro Prescriptions: Continued celecoxib [Celebrex] 200 mg Capsule 100 mg PO BID lisinopril 20 mg Tablet 20 mg PO DAILY chlorthalidone 25 mg Tablet 25 mg PO DAILY tramadol 50 mg Tablet 50 mg PO BID PRN (Reason: Pain) acetaminophen [Acetaminophen Pain Relief] 500 mg Tablet 1,300 mg PO TID potassium 99 mg Tablet 297 mg PO BID lansoprazole [Prevacid] 30 mg Capsule,Delayed Release(Dr/Ec) 30 mg PO DAILY allopurinol 300 mg Tablet 300 mg PO DAILY magnesium 250 mg Tablet 1,000 mg PO BID aspirin 81 mg Tablet,Delayed Release (Dr/Ec) 81 mg PO BID Qty: 60 0RF docusate sodium [DOK] 100 mg Capsule 100 mg PO BID Qty: 60 0RF hydroxyzine HCl 25 mg tablet 25 mg PO BID PRN (Reason: muscle spasms) Qty: 20 0RF Rx Instructions: 1 tab po every 12 hours as needed for muscle spasms Follow up/Referrals: Marc Garza MD [Primary Care Provider] - Cristal Rutledge MD [Physician] - (10-14 days for postoperative visit) Diet/Activity/Treatments Diet: Diet as Tolerated Other treatments: Medications: -Aspirin 81mg twice daily x6 weeks to prevent blood clots. -OTC Tylenol 500 mg 1 tablet every 4 hours as needed for pain/fever. Max 6 tablets per day. -Ibuprofen 400 mg 1 tablet every 4 hours as needed for pain/inflammation. Max 2,400 mg per day. -Oxycodone 5 mg take 1-2 tablets every 4 hours as needed for moderate-severe pain (narcotic pain medication). -Vistaril (hydroxyine) 25mg 1 tab every 4 hours as needed for spasms/pain/nausea. -As needed medications: -Ducolax and /or MiraLax as needed for constipation from narcotic pain medications. -Pepcid AC as needed for stomach upset (usually from aspirin or ibuprofen). Dressing/Wound care: -Remove the Guillermo wrap 48 hours after surgery. -Keep Becky dressing in place until postoperative follow-up office visit. The Becky battery/pump should last for 7 days from surgery. Once the pump stops, please cut off hose at base of dressing and cover with a bandaid/part of a dressing from Becky package. The monitor can be thrown away and recycle the batteries. Leave the remaining dressing in place. -Becky info: The Becky dressing provides suction known as negative pressure wound therapy, which draws out excess fluid from the wound and protects the incision. It also helps to prevent bacteria from entering the wound or incision. -Okay to shower. Keep wound out of direct water stream. No soaking or submerging until all the scabs fall off (approximately 4-6 weeks). -No lotions, ointments, or scar creams directly to the incision until the wound is healed (4-6 weeks), -Please call the office if dressing becomes wet, soiled, or saturated. Activities: -Weight-bearing as tolerated. Use front wheeled walker, and progress to cane when safe. -Continue with home exercises as directed by your physical therapist. -Elevate ?toes above the nose if you have significant swelling in your lower leg. (A wedge pillow is easiest.) -Ice your incision as needed for pain/inflammation/swelling. Protect your skin with a folded pillowcase. -Incentive Spirometer (breathing device from hospital): 5-10xs every hour while awake for the first 1-2 weeks. Follow-up: -Follow-up with your surgeon or PA in the office in 10-14 days after surgery. -Follow-up with your surgeon 6 weeks postoperatively. Call the office if you have chest pain, shortness of breath, significant swelling that will not resolve with elevating, fever over 101?, significantly worsening pain, or are concerned you might need to go to the Emergency Room. [facility]: [phone] Skin/Wound/Dressing Care Report to your healthcare provider any signs of infection, such as:: chills, fever, night sweats, unusual drainage and unusual redness Visit Report/Discharge Packet Instructions: DI for Knee Replacement Stand Alone Forms: Surgery Discharge Discharge Data Primary Care Provider: Marc Garza Attending Provider: Cristal Rutledge VTE Deep Vein Thrombosis/Pulmonary Embolism Present on Admission: No
[2021-12-06] MEDS: MAGNESIUM OXIDE 400 MG TABLET 1000 MG PO (08:10)
[2021-12-06 08:12] VITALS: BP 128/60; PULSE 66; RESP 18; TEMP 36.3; O2SAT 97
[2021-12-06 08:13] VITALS: BP 128/60; PULSE 66
[2021-12-06] MEDS: DOCUSATE 100 MG CAPSULE PO (08:13)
[2021-12-06] MEDS: ASPIRIN EC 81 MG TABLET PO (08:13)
[2021-12-06] MEDS: lisinopriL 20 MG TABLET PO (08:13)
[2021-12-06] MEDS: CHLORTHALIDONE 25 MG TABLET PO (08:13)
[2021-12-06] MEDS: allopurinoL 300 MG TABLET PO (08:18)
--- NOTE | 2021-12-06 08:46 | CM.DANOTE ---
DCP: Case received, EMR reviewed and met with patient. Introduced self and role. Was able to obtain information regarding patient's baseline activity level prior to her surgery. DCP assessment completed with information currently available. Patient is a 66 year old female who admitted yesterday morning to the care of the orthopedic team. PCP: Dr. Garza. Payer: confirmed: [employer]. Patient came to the hospital via private vehicle for a surgical procedure. Patient had left total knee arthroplasty. Patient has history of osteoarthritis of her left knee. Met with patient in her room. She is alert and oriented, and was sitting up in bed having breakfast. Confirmed that she resides in [place] with her grandson, Vidal. Daughter, Luz, will be staying with patient for about a week, and then, will check on her, she lives nearby. Patient is independent at her baseline, has been doing outpatient P.T. at [email or web address]. She has a quad cane and trekking poles, and still drives. P: Patient is to be discharged home today. She will work with P.T before discharge. Brie Sheehan RN/Trash Collector Discharge Planning/Care Management CM Discharge Assessment Start: 12/06/21 08:44 Freq: Status: Active Protocol: Document 12/06/21 08:44 (Rec: 12/06/21 08:46 [id number]) Discharge Planning Assessment Assigned Lath Tier Brie Sheehan RN/Trash Collector Advance Directives? Yes Advance Directives on File No History Provided By Patient,Medical Record Prior Living Arrangements House Household Members family Type of transporation used prior to Drives own vehicle admit Independent with ADL's Yes Is patient alert and oriented? Yes Caregiver for Another No DME Already Rented / Owned Cane Comment Has a quad cane and trekking poles Patient/Family Preference OP PT Therapy Comment Patient will be doing outpatient P.T. with [facility] Barriers to Discharge No Comment Daughter is staying with her. Discharge Plan Home Transportation Arrangement Family Referrals Initiated None needed Whiteboard Updated in Patient Room with Yes name and ext. # of Lath Tier Review Status In Process Next Review Type Continued Stay Review Pre-Anesthesia Assessment Start: 11/28/21 13:52 Freq: Status: Complete Protocol: Document 11/28/21 13:52 CAB (Rec: 11/28/21 14:01 CAB [id number]) Pre-Anesthesia Assessment PAC Comment Pt is s/p RT TKA 12/30/18. She declined PAC phone assess, states no changes to medical/ medication history, no questions/concerns with upcoming surgery. Chart review only. 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 Required No Height 5 ft 8.5 in Weight 306 lb Body Mass Index (BMI) 45.8 Hearing Ability Normal Visual Assist Glasses Dentition Type Teeth, Natural Present Other Aids No Hx Anesthesia Reactions Yes: PONV-Pt wants a spinal Hx Family Anesthesia Reaction No Hx Malignant Hyperthermia No Hx Blood Transfusions No Anesthesia Review Requested No 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 No Does patient have LIN/SOB No Hx Sleep Apnea No Currently Taking a Beta Keely No Can You Climb a Flight of Stairs Without No SOB Hx Chest Pain No Hx SOB No Hx Syncope or Dizziness No Anti-Coagulant Therapy No Has a Sneller Hand No Cardiac Testing No Hx Pacemaker/ICD No Pacemaker Rep Required? No Diet Type At Home Low Carb Bladder Pattern Incontinent, Stress Urinary Catheter Present No Hx Urinary Self Catheterization No Diabetes No HgbA1C 5.1 Date 09/30/21 Patient No Lactating No Hx Drug Resistant Organism No Presence of External or Internal Medical No Devices Marital Status Lives With none Prior Living Arrangements House Number of Floors (Floors) One Floor Support System Child/Children Patient Discharge Plan Description Return Home Feels Safe in Current Environment Yes Been Physically Hurt or Threatened By a No Person in Current Environment Do you have thoughts of harming yourself None or others? Are you currently considering suicide? No Do you have a plan to hurt yourself or No Plan others? Do You Have Any Spiritual Beliefs That No May Affect Your HC Choices? Do You Have Any Cultural Practices That No May Affect Your HC Choices? Comment Yarsanism Who Can We Speak to About Patient's Care Family, friends Identifying Code for Release of Patient Declines to issue Information Health Care Proxy/Next of Kin Luz (daughter) Health Care Proxy Emergency Contact Name Luz (daughter), [phone] Emergency Contact Phone Number Luz- [phone] Advance Directives? Yes Advance Directives on File No
[2021-12-06 09:05] VITALS: BP 112/50; BP 127/68; BP 77/44
--- NOTE | 2021-12-06 09:22 | PT.IPTN ---
Current Diagnoses Unilateral primary osteoarthritis, left knee (12/05/21) Surgery Performed Operation Date: 12/05/21 07:45 Actual Procedures p Total Knee Arthroplasty(Left) - Cristal Rutledge MD Physical Therapy Treatment Note M2 PT-IP Current Condition Start: 12/05/21 14:55 Freq: NEEDED Status: Active Protocol: Document 12/05/21 14:10 AB (Rec: 12/05/21 15:09 AB [id number]) Physical Therapy Current Condition Current Condition Evaluation Date 12/05/21 Treatment Diagnosis s/p L TKA; difficulty in walking Onset Date 12/05/21 M3 PT-IP Subjective Start: 12/05/21 14:55 Freq: NEEDED Status: Active Protocol: Document 12/06/21 08:59 KS (Rec: 12/06/21 11:00 KS [id number]) Subjective Physical Therapy Visit Type Type Treatment Note Visit Start Time 08:59 Visit Stop Time 09:22 Total Visit Minutes 23 Notes BP: 112/50 sitting 77/44 sitting after brief standing period 127/68 supine Pts daughter present for caregiver training. Physical Therapy Visit Comments Patient Comments agreeable to do PT Therapy Pain Assessment Pain When Pain Assessed At Rest Pain Present Pain Present Pain Reported Location Left Knee Intensity 7 Scale Used Numeric (0 - 10) M4 PT-IP Mobility and Gait Start: 12/05/21 14:55 Freq: NEEDED Status: Active Protocol: Document 12/06/21 08:59 KS (Rec: 12/06/21 11:00 KS [id number]) PT-Transfer Assessment Sit to and From Stand Sit to and from Stand Minimal Assistance,1 Person Assistance,Use of Upper Extremities Equipment Transfer Assistive Device Gait Belt,Front Wheeled Walker Orthotic/Prosthetic Devices or Brace: No Transfers Transfer Destination Bed Transfer Technique sit<>stand Transfer Ability Level of Assist 1 Person Assistance,Use of Upper Extremities Comments Mobility Comments Pt sitting EOB upon arrival w/ daughter present for caregiver training. She c/o 7/ 10 pain in knee. Pts BP 112/50 sitting EOB and pt c/o mild nausea. Pts daughter able to apply gait belt and provide Min A for pt sit<>stand. Upon standing, pt c/o increased dizziness and nausea and was not able to tolerate standing long enough for BP reading, but BP dropped to 77/44 while pt sitting EOB. Mod A for LE elevation for sit<>sup, pts BP 127/68 supine. RN and MARKETING REPORTING ANALYST aware, provided written BP readings to MARKETING REPORTING ANALYST. Pt left in bed w/ all needs in reach. Gait Assessment Comments Gait Comments Unable to assess due to symptomatic orthostatic hypotension. Stair Climbing Assessment Comments Stair Climbing Comments Unable to assess due to symptomatic orthostatic hypotension. PT-Balance Assessment Sitting Balance and Reactions Static Sitting Balance Ability Good Dynamic Sitting Balance Ability Good Standing Balance and Reactions Static Standing Balance Ability Fair Device Used FWW M5 PT-IP Objective Assessments Start: 12/05/21 14:55 Freq: NEEDED Status: Active Protocol: Document 12/05/21 14:10 AB (Rec: 12/05/21 15:09 AB [id number]) Orientation Orientation/Cognition Level of Alertness Alert Orientation Name,Place,Situation Safety Awareness Decreased Safety Awareness Gross Range of Motion Lower Extremity ROM Assessment Left Impaired Impairments L knee flexion: ~ 60 deg Strength Lower Extremity Strength Assessment Left Impaired Hip 4-/5 Knee 3+/5 Muscle Tone Muscle Tone WNL Yes M6 PT-IP Treatment Start: 12/05/21 14:55 Freq: NEEDED Status: Active Protocol: Document 12/06/21 08:59 KS (Rec: 12/06/21 11:00 KS [id number]) Physical Therapy Treatment Education Education Provided Weight Bearing Status,Safety Other Treatments Other Treatment Performed Initiated caregiver training, but unable to complete due to low BP w/ dizziness and nausea . M7 PT-IP Assessment and Plan Start: 12/05/21 14:55 Freq: NEEDED Status: Active Protocol: Document 12/06/21 08:59 KS (Rec: 12/06/21 11:00 KS [id number]) PT Summary Assessment and Plan Potential Rehabilitation Potential Fair Summary Impairments Pain,ROM,Strength,Balance, Coordination,Sensation,Tone, Cognition,Bed Mobility, Transfers,Gait,Activity Tolerance Progress Towards Goals Slow Progress due to Medical Issues Assessment Summary Unable to progress mobility due to symptomatic orthostatic hypotension. BP 112/50 sitting, 77/44 sitting after brief standing period (pt unable to tolerate standing BP reading due to dizziness and nausea) and 127/68 supine. Will progress when pt is medically stable. Goals Bed Mobility Goal Independent Transfer Goal Independent,Front Wheeled Walker Gait Goal Independent,Front Wheel Walker Gait Distance 150 Other Goals up/down 3 steps R rail SBA Days to Meet Goals 5 Frequency of Treatment Frequency Of Treatment Twice a Day Treatment Plan Physical Therapy Treatment Plan Bed Mobility Training,Transfer Training,Gait Training, Therapeutic Exercise,Balance Retraining,Post Op Education, Discharge Planning,Hot or Cold Pack,Neuromuscular Re-ed, Coordination Retraining,Manual Therapy Other Recommendations and Next Treatment Stair training, complete Focus caregiver training. Weight Bearing Status Weight Bearing Status Weight Bear as Tolerated Allowed Weight Bearing Amount (enter % LLE WBAT or #) (%) Recommendations To Nursing Amount of Assist Needed 1 Person Assist Discharge Recommendations PT Discharge Recommendations Home with Assistance, Outpatient PT Transportation Needs at Discharge Private Vehicle
[2021-12-06] MEDS: SODIUM CHLORIDE 0.9% 1,000 ML 75 ML IV (10:00)
--- NOTE | 2021-12-06 13:55 | PT.IPTN ---
Current Diagnoses Unilateral primary osteoarthritis, left knee (12/05/21) Surgery Performed Operation Date: 12/05/21 07:45 Actual Procedures p Total Knee Arthroplasty(Left) - Cristal Rutledge MD Physical Therapy Treatment Note M2 PT-IP Current Condition Start: 12/05/21 14:55 Freq: NEEDED Status: Active Protocol: Document 12/05/21 14:10 AB (Rec: 12/05/21 15:09 AB [id number]) Physical Therapy Current Condition Current Condition Evaluation Date 12/05/21 Treatment Diagnosis s/p L TKA; difficulty in walking Onset Date 12/05/21 M3 PT-IP Subjective Start: 12/05/21 14:55 Freq: NEEDED Status: Active Protocol: Document 12/06/21 13:20 KS (Rec: 12/06/21 14:38 KS [id number]) Subjective Physical Therapy Visit Type Type Treatment Note Visit Start Time 13:20 Visit Stop Time 13:55 Total Visit Minutes 35 Notes Pts daughter present for caregiver training Number of [employer] TEND[employer] Visits 1 Physical Therapy Visit Comments Patient Comments agreeable to do PT Therapy Pain Assessment Pain When Pain Assessed At Rest Pain Present Pain Present Pain Reported Location L calf Scale Used not quantified Description Stabbing,Tender,Tightness M4 PT-IP Mobility and Gait Start: 12/05/21 14:55 Freq: NEEDED Status: Active Protocol: Document 12/06/21 13:20 KS (Rec: 12/06/21 14:38 KS [id number]) PT-Bed Mobility Assessment Supine to Sit Supine to Sit Minimal Assistance,1 Person Assistance,Head of Bed Elevated Sit to Supine Sit to Supine Minimal Assistance,1 Person Assistance Scooting Scooting to Edge of Bed Minimal Assistance PT-Transfer Assessment Sit to and From Stand Sit to and from Stand Contact Guard Assistance, Minimal Assistance,1 Person Assistance,Use of Upper Extremities Equipment Transfer Assistive Device Gait Belt,Front Wheeled Walker Orthotic/Prosthetic Devices or Brace: No Transfers Transfer Destination Bed,Wheelchair,Bedside Commode Transfer Technique sit<>stand Transfer Ability Level of Assist 1 Person Assistance,Use of Upper Extremities Comments Mobility Comments Pt in bed upon arrival, BP stable throughout treatment and pt w/o symptoms. Pts daughter was able to provide all assistance and cues and applied gait belt. Pt Min A for sup<>sit and scooting EOB. CGA to Min A for sit<>Stand w / FWW and transfer to BSC. After voiding, pt amublated ~ 15 ft to w/c in hallway for transport to practice stairs. Pts daughter provided Min A for pt to ascend/descend 3 steps w/ rails and cues for sequencing. Pt reported high level of fatigue and used w/c for transport back to room, ambulated ~15 ft from doorway to bed. BP still stable. RN arrived to assess pt calf due to pt reported new onset of calf pain, wound vac began leaking, pt left w/ RN attending. Gait Assessment Gait Gait Assistance Required: Contact Guard Assist,1 Person Assist Distance (Feet) 15 Able to Maintain Weight Bearing Status Yes During Gait Assistive Devices Assistive Device Gait Belt,Front Wheeled Walker Orthotic/Prosthetic Devices or Brace: No Gait Deviations General Gait Pattern Antalgic,Decreased Stride Length,Decreased Feet Clearance,Step-to Gait Factors Limiting Gait Function Factors Limiting Gait Function Decreased Activity Tolerance, Decreased Strength,Difficulty Following Directions,Limited Range of Motion,Pain,Poor Balance,Poor Safety Awareness Comments Gait Comments Low tolerance for ambulation due to weakness and low activity tolerance. Has FWW at home. Stair Climbing Assessment Evaluation Level of Assist On Stairs Minimal Assistance,1 Person Assistance Devices Stair Climbing Assistive Devices Left Railing,Right Railing Technique/Endurance Stair Climbing Direction Ascend and Descend Stair Climbing Technique Step to Step Number of Steps Climbed 3 Stair Climbing Set # Repetitions (reps) 1 Comments Stair Climbing Comments Pt ascended/descended 3 steps w/ use of rails and Min A from her daughter w/ step to pattern and cues for leg sequencing. Pt does not have bilateral rails but has unilateral rails and other surfaces to hold onto when completing stairs. Refused further practice and feels safe to complete at home. PT-Balance Assessment Sitting Balance and Reactions Static Sitting Balance Ability Good Dynamic Sitting Balance Ability Good Standing Balance and Reactions Static Standing Balance Ability Good Dynamic Standing Balance Ability Fair Device Used FWW M5 PT-IP Objective Assessments Start: 12/05/21 14:55 Freq: NEEDED Status: Active Protocol: Document 12/05/21 14:10 AB (Rec: 12/05/21 15:09 AB [id number]) Orientation Orientation/Cognition Level of Alertness Alert Orientation Name,Place,Situation Safety Awareness Decreased Safety Awareness Gross Range of Motion Lower Extremity ROM Assessment Left Impaired Impairments L knee flexion: ~ 60 deg Strength Lower Extremity Strength Assessment Left Impaired Hip 4-/5 Knee 3+/5 Muscle Tone Muscle Tone WNL Yes M6 PT-IP Treatment Start: 12/05/21 14:55 Freq: NEEDED Status: Active Protocol: Document 12/06/21 13:20 KS (Rec: 12/06/21 14:38 KS [id number]) Physical Therapy Treatment Education Education Provided Precautions,Weight Bearing Status,Post-Op Packet,Safety Other Treatments Other Treatment Performed Completed caregiver training. Stressed importance of mobility, weight bearing, ambulation, ther ex, and OPPT. M7 PT-IP Assessment and Plan Start: 12/05/21 14:55 Freq: NEEDED Status: Active Protocol: Document 12/06/21 13:20 KS (Rec: 12/06/21 14:38 KS [id number]) PT Summary Assessment and Plan Potential Rehabilitation Potential Fair Summary Impairments Pain,ROM,Strength,Balance, Coordination,Sensation,Tone, Cognition,Bed Mobility, Transfers,Gait,Activity Tolerance Progress Towards Goals Slow Progress due to Activity Tolerance Assessment Summary Pt had stable BP this PM and daughter was able to provide all necessary assistance and cues. Pt c/o L calf pain -RN aware and assessing w/ vascular doppler. Pt Min A for mobility, transfers, and ambulation w/ FWW. Able to ascend/descend 3 stairs. Pt seemingly avoidant of ambulation progression, stressed importance of walking frequently and weight bearing while at home. Limited by pain, weakness, and low tolerance for activity. Pt and her daughter feel safe to return home w/ daughter providing assistance. She will benefit from OPPT to improve strength, stability, and ROM. Goals Bed Mobility Goal Independent Transfer Goal Independent,Front Wheeled Walker Gait Goal Independent,Front Wheel Walker Gait Distance 150 Other Goals up/down 3 steps R rail SBA Days to Meet Goals 5 Frequency of Treatment Frequency Of Treatment Twice a Day Treatment Plan Physical Therapy Treatment Plan Bed Mobility Training,Transfer Training,Gait Training, Therapeutic Exercise,Balance Retraining,Post Op Education, Discharge Planning,Hot or Cold Pack,Neuromuscular Re-ed, Coordination Retraining,Manual Therapy Other Recommendations and Next Treatment Increase ambulation distance, Focus more stair practice. Weight Bearing Status Weight Bearing Status Weight Bear as Tolerated Allowed Weight Bearing Amount (enter % LLE WBAT or #) (%) Recommendations To Nursing Amount of Assist Needed 1 Person Assist Discharge Recommendations PT Discharge Recommendations Home with Assistance, Outpatient PT Transportation Needs at Discharge Private Vehicle
[2021-12-06 14:06] VITALS: BP 147/77; PULSE 91; RESP 18
--- NOTE | 2021-12-06 14:47 | CM.MNRNOTE ---
Pt anticipating going home today. good strong family support. Up with PT became dizzy, B/P dropped 77/40. Pt resettled to bed. P.A. notified. IVF's started. HV drain site cleaned up and redressed, discussed out put with P.A. PtT in after lunch, Pt did much better as was cleared by PT. Pt readying to go home with family.
== END 2021-12-06 15:17 | disposition home or self-care (01) ==
LOC: OR 06:09 → AC 06:10
PROVIDERS: PCP Family Medicine; Referring Provider Orthopaedic Surgery; Visit Provider Orthopaedic Surgery
PROC: 0SRD0JZ Replacement of Left Knee Joint with Synthetic Substitute, Open Approach (ICD-10-PCS; CPT 27447; principal; 2021-12-05 07:45)
DX: M17.12 Unilateral primary osteoarthritis, left knee (principal); K21.9 Gastro-esophageal reflux disease without esophagitis; E66.01 Morbid (severe) obesity due to excess calories; I10 Essential (primary) hypertension; Z68.42 Body mass index [BMI] 45.0-49.9, adult; Z96.651 Presence of right artificial knee joint
CPT/HCPCS: 27447; 01402; 36415; 73560; 85014; 85018; 97116; 97162; 97530; C1776; C1713; C9290; J0171; J1170; J2250; J2405; J2704; J2765; J3010